=== PATIENT | female | born 1990 | race Caucasian/White ===

== ENCOUNTER 2023-11-18 10:34 | Emergency (ER) | payer OTHER ==
[2023-11-18 10:55] VITALS: BMI 34.9
[2023-11-18] MEDS ORDERED: TRANEXAMIC ACID 1000 MG/10 ML VIAL IVPUSH ONE (12:38)
[2023-11-18] MEDS ORDERED: TRANEXAMIC ACID 1000 MG/10 ML VIAL ONE (12:57)
[2023-11-18] MEDS: TRANEXAMIC ACID 1000 MG/10 ML VIAL IVPB ONE (13:46)
[2023-11-18 13:47] LABS: BASO % 0.7 % (0-2.0); EOS % 0.9 % (0-4.5); HEMATOCRIT 41.8 % (32.4-45.2); HEMOGLOBIN 14.1 GM/dL (10.7-15.3); MCH 29.5 pg (25.7-33.7); MCHC 33.7 g/dl (32.0-36.0); MEAN CELL VOLUME 87.5 fl (80-96); MONO % 8.3 % (3.8-10.2); NEUT % 57.1 % (42.8-82.8); RBC 4.77 M/mm3 (3.60-5.2); RDW 13.4 % (11.6-15.6); WHITE BLOOD COUNT 8.1 K/mm3 (4.0-10.0)
[2023-11-18 13:55] LABS: INR 1.07 (0.83-1.09); PROTHROMBIN TIME (PATIENT) 12.1 SEC (9.7-13.0)
[2023-11-18 14:04] LABS: POTASSIUM 3.9 mmol/L (3.5-5.1)
[2023-11-18 14:06] LABS: CALCIUM 9.4 mg/dL (8.5-10.1)
[2023-11-18 14:07] LABS: ALBUMIN 3.8 g/dl (3.4-5.0); BLOOD UREA NITROGEN 5.9 mg/dL (7-18)
[2023-11-18 14:11] LABS: BILIRUBIN,TOTAL 0.4 mg/dL (0.2-1); TOT PROT 7.3 g/dl (6.4-8.2)
[2023-11-18 14:12] LABS: CREATININE 0.5 mg/dL (0.55-1.3)
[2023-11-18 14:20] LABS: ACTIVATED PTT 16.6 SECONDS (25.2-36.5)
[2023-11-18 15:38] VITALS: BP 104/62; PULSE 60; RESP 17; TEMP 98.7
== END 2023-11-18 16:51 | disposition home or self-care (01) ==
LOC: JER 10:34
PROC: 3E033GC Introduction of Other Therapeutic Substance into Peripheral Vein, Percutaneous Approach (ICD-10-PCS; principal; 2023-11-18)
DX: M79.89 Other specified soft tissue disorders (principal); R22.0 Localized swelling, mass and lump, head; T78.3XXA Angioneurotic edema, initial encounter
CPT/HCPCS: 36415; 80053; 85025; 85610; 85730; 99284-25